=== PATIENT | male | born 1965 | race Two or more races ===

== ENCOUNTER 2016-12-11 20:43 | Emergency (ER) | payer OTHER ==
[~2016-12-11] VITALS: Ht 167.6 cm; Wt 116.0 kg
[2016-12-12] MEDS ORDERED: SODIUM CHLORIDE 0.9% 1,000 ML IV ONE (01:50)
[2016-12-12 02:20] LABS: BASOPHILS % 0.6 % (0.0-2.0); EOSINOPHILS % 2.8 % (0.0-5.0); HEMATOCRIT. 40.7 % (42.0-52.0); HEMOGLOBIN. 13.8 g/dL (14.0-18.0); LYMPHOCYTES % 38.1 % (20.0-50.0); MEAN CORPUSCULAR HEMOGLOBIN 28.7 pg (28.0-32.0); MEAN CORPUSCULAR VOLUME 84.8 fL (80.0-94.0); MEAN PLATELET VOLUME 9.2 fl (7.4-10.4); NEUTROPHILS % 46.5 % (40.0-76.0); PLATELET 208 x1000/uL (130-400); RED CELL DISTRIBUTION WIDTH 12.4 % (11.6-14.6)
[2016-12-12 02:33] LABS: CARBON DIOXIDE 25 mEq/L (21-32); CHLORIDE 109 mEq/L (98-107); TROPONIN I < 0.02 ng/mL (0.00-0.04)
[2016-12-12 05:20] VITALS: BP 145/84
== END 2016-12-12 06:15 | disposition home or self-care (01) ==
LOC: ER 20:49
DX: R53.1 Weakness (principal); R42 Dizziness and giddiness; R51 Headache; I10 Essential (primary) hypertension
CPT/HCPCS: 36415; 70450; 71010; 80053; 84484; 85025; 93005; 96360; 99285; J7030

== ENCOUNTER 2017-12-24 06:36 | Emergency (ER) | payer SELFPAY ==
[~2017-12-24] VITALS: Ht 165.1 cm; Wt 84.0 kg
[2017-12-24] MEDS ORDERED: IBUPROFEN 600MG TABLET PO ONE (07:45)
[2017-12-24 09:35] VITALS: BP 170/102
== END 2017-12-24 09:40 | disposition home or self-care (01) ==
LOC: ER 06:36
DX: S00.81XA Abrasion of other part of head, initial encounter (principal); M25.512 Pain in left shoulder; R51 Headache; I10 Essential (primary) hypertension; V43.52XA Car driver injured in collision with other type car in traffic accident, initial encounter; Y93.89 Activity, other specified; Y92.488 Other paved roadways as the place of occurrence of the external cause
CPT/HCPCS: 73030; 99284

== ENCOUNTER 2019-02-13 16:49 | Emergency (ER) | payer OTHER ==
[~2019-02-13] VITALS: Ht 167.6 cm; Wt 90.0 kg
[2019-02-13] MEDS ORDERED: LABETALOL HCL 20MG/4ML CARPUJECT IV ONE (18:15)
[2019-02-13 18:29] LABS: BASOPHILS % 0.6 % (0.0-2.0); EOSINOPHILS % 0.7 % (0.0-5.0); HEMATOCRIT. 41.7 % (42.0-52.0); HEMOGLOBIN. 14.1 g/dL (14.0-18.0); LYMPHOCYTES % 19.7 % (20.0-50.0); MEAN CORPUSCULAR HEMOGLOBIN 29.8 pg (28.0-32.0); MEAN CORPUSCULAR VOLUME 88.2 fL (80.0-94.0); MEAN PLATELET VOLUME 9.2 fl (7.4-10.4); MONOCYTES % 7.2 % (2.0-8.0); NEUTROPHILS % 71.8 % (40.0-76.0); PLATELET 215 x1000/uL (130-400); RED BLOOD CELL COUNT 4.73 mill/uL (4.7-6.1)
[2019-02-13] MEDS ORDERED: LABETALOL 5MG/ML SYR 20 MG/4 ML SYRINGE IV ONE (18:34)
[2019-02-13 18:35] LABS: CHLORIDE 114 mEq/L (98-107)
[2019-02-13] MEDS ORDERED: AMLODIPINE 10MG TABLET PO ONE (19:00)
[2019-02-13 20:21] LABS: CLARITY URINE CLEAR (CLEAR); COLOR URINE YELLOW (YELLOW); KETONES URINE TRACE (NEGATIVE); LEUKOCYTE ESTERASE URINE NEGATIVE (NEGATIVE); NITRITE URINE NEGATIVE (NEGATIVE); OCCULT BLOOD URINE 2+ (NEGATIVE); PH URINE 5.5 (4.5-8.0); PROTEIN URINE 4+ (NEGATIVE); SPECIFIC GRAVITY URINE 1.023 (1.005-1.030); UROBILINOGEN URINE 0.2 E.U./dL (0.2-1.0)
[2019-02-13] MEDS ORDERED: KETOROLAC 30MG/ML VIAL IV ONE (21:15)
[2019-02-13 21:55] VITALS: BP 152/88
== END 2019-02-13 21:57 | disposition home or self-care (01) ==
LOC: ER 16:49
DX: I10 Essential (primary) hypertension (principal); R51 Headache; Z91.14 Patient's other noncompliance with medication regimen
CPT/HCPCS: 36415; 70450; 80053; 81003; 83880; 84484; 85025; 87804; 93005; 96374; 99284; J1885; J3490

== ENCOUNTER 2019-10-12 15:36 | Inpatient (IN) | payer OTHER ==
[~2019-10-12] VITALS: Ht 162.6 cm; Wt 107.5 kg
[2019-10-12] MEDS ORDERED: SODIUM CHLORIDE 0.9% 1,000 ML IV ONE (18:18)
[2019-10-12 19:09] LABS: BASOPHILS % 0.6 % (0.0-2.0); EOSINOPHILS % 2.4 % (0.0-5.0); HEMATOCRIT. 34.3 % (42.0-52.0); HEMOGLOBIN. 11.4 g/dL (14.0-18.0); LYMPHOCYTES % 35.3 % (20.0-50.0); MEAN CORPUSCULAR HEMOGLOBIN 29.6 pg (28.0-32.0); MEAN PLATELET VOLUME 9.1 fl (7.4-10.4); NEUTROPHILS % 52.7 % (40.0-76.0); PLATELET 213 x1000/uL (130-400); RED BLOOD CELL COUNT 3.85 mill/uL (4.7-6.1); RED CELL DISTRIBUTION WIDTH 12.2 % (11.6-14.6)
[2019-10-12 19:11] LABS: CHLORIDE 116 mEq/L (98-107)
[2019-10-12] MEDS ORDERED: FUROSEMIDE 100MG/10ML VIAL IV NR (19:29)
[2019-10-12] MEDS ORDERED: INSULIN REGULAR (HUMULIN R) 300UNITS/3ML IV NR (19:30)
[2019-10-12] MEDS ORDERED: CALCIUM GLUCONATE 1,000 MG in DEXTROSE 5% WATER 50 ML IV NR (19:30)
[2019-10-12] MEDS ORDERED: DEXTROSE 50% WATER 50ML SYRINGE IV NR ×2 (19:30→23:00)
[2019-10-12] MEDS ORDERED: DEXTROSE 50% WATER 50ML SYRINGE IV ONE (22:45)
[2019-10-12 23:15] VITALS: BP 135/86
[2019-10-13] MEDS ORDERED: AMLO10TA80 PO (00:30)
[2019-10-13] MEDS ORDERED: LISI40TA4 PO (00:30)
[2019-10-13] MEDS ORDERED: ASPI-1497 PO (00:30)
[2019-10-13] MEDS ORDERED: ATOR40TA70 MT (00:30)
[2019-10-13] MEDS ORDERED: HYDR25TA MT (00:30)
[2019-10-13] MEDS ORDERED: CALC30CA PO (00:30)
[2019-10-13 00:37] LABS: CHLORIDE 119 mEq/L (98-107)
[2019-10-13] MEDS ORDERED: ONDANSETRON HCL 4MG/2ML INJ IV PRN (01:15)
[2019-10-13] MEDS ORDERED: HYDRALAZINE 20MG/ML VIAL IV PRN (01:15)
[2019-10-13] MEDS ORDERED: ACETAMINOPHEN 325MG TABLET PO PRN (01:15)
[2019-10-13] MEDS: SODIUM CHLORIDE 0.9% 1,000 ML IV SCH ×3 (03:46→22:40)
[2019-10-13 04:00] VITALS: BP 133/76
[2019-10-13 07:06] LABS: CHLORIDE 120 mEq/L (98-107)
[2019-10-13 07:07] LABS: BASOPHILS % 0.5 % (0.0-2.0); EOSINOPHILS % 2.4 % (0.0-5.0); HEMATOCRIT. 30.9 % (42.0-52.0); HEMOGLOBIN. 10.5 g/dL (14.0-18.0); LYMPHOCYTES % 28.5 % (20.0-50.0); MEAN CORPUSCULAR HEMOGLOBIN 29.9 pg (28.0-32.0); MEAN CORPUSCULAR VOLUME 87.7 fL (80.0-94.0); MEAN PLATELET VOLUME 9.5 fl (7.4-10.4); MONOCYTES % 10.3 % (2.0-8.0); NEUTROPHILS % 58.3 % (40.0-76.0); PLATELET 178 x1000/uL (130-400); RED BLOOD CELL COUNT 3.53 mill/uL (4.7-6.1); RED CELL DISTRIBUTION WIDTH 11.9 % (11.6-14.6)
[2019-10-13 07:16] LABS: CREATINE KINASE 80 IU/L (39-308)
[2019-10-13 07:18] LABS: CREATINE KINASE MB FRACTION < 1.0 ng/mL (0.5-3.6)
[2019-10-13 08:00] VITALS: BP 117/76
[2019-10-13] MEDS ORDERED: ENOXAPARIN 60MG/0.6ML SYR SUBCUT SCH (09:00)
[2019-10-13] MEDS: ENOXAPARIN 40MG/0.4ML SYR SUBCUT SCH (09:43)
[2019-10-13 12:00] VITALS: BP 131/85
[2019-10-13] MEDS ORDERED: SODIUM POLYSTYRENE SULFONATE 15 G/60 ML BOT PO NR (13:00)
[2019-10-13 13:51] LABS: CLARITY URINE CLEAR (CLEAR); COLOR URINE YELLOW (YELLOW); KETONES URINE NEGATIVE (NEGATIVE); LEUKOCYTE ESTERASE URINE NEGATIVE (NEGATIVE); NITRITE URINE NEGATIVE (NEGATIVE); OCCULT BLOOD URINE 1+ (NEGATIVE); PROTEIN URINE 3+ (NEGATIVE); SPECIFIC GRAVITY URINE 1.018 (1.005-1.030); UROBILINOGEN URINE 0.2 E.U./dL (0.2-1.0)
[2019-10-13] MEDS: METOPROLOL TARTRATE 50MG TABLET PO SCH ×2 (15:23→20:58)
[2019-10-13] MEDS: HYDROCHLOROTHIAZIDE 25MG TABLET PO SCH (15:23)
[2019-10-13] MEDS: AMLODIPINE 10MG TABLET PO SCH (15:23)
[2019-10-13] MEDS: HYDRALAZINE HCL 50MG TABLET PO SCH ×2 (15:23→22:40)
[2019-10-13 20:00] VITALS: BP 132/76
[2019-10-14] VITALS: BP 128/72
[2019-10-14 04:00] VITALS: BP 116/75
[2019-10-14] MEDS: SODIUM CHLORIDE 0.9% 1,000 ML IV SCH (05:13)
[2019-10-14] MEDS: HYDRALAZINE HCL 50MG TABLET PO SCH ×2 (05:14→14:03)
[2019-10-14 07:03] LABS: PHOSPHORUS 4.5 mg/dL (2.5-4.9)
[2019-10-14 07:04] LABS: BASOPHILS % 0.6 % (0.0-2.0); EOSINOPHILS % 2.4 % (0.0-5.0); HEMATOCRIT. 29.5 % (42.0-52.0); HEMOGLOBIN. 10.1 g/dL (14.0-18.0); LYMPHOCYTES % 29.2 % (20.0-50.0); MEAN CORPUSCULAR HEMOGLOBIN 30.2 pg (28.0-32.0); MEAN CORPUSCULAR VOLUME 87.9 fL (80.0-94.0); MEAN PLATELET VOLUME 9.6 fl (7.4-10.4); NEUTROPHILS % 57.8 % (40.0-76.0); PLATELET 164 x1000/uL (130-400); RED BLOOD CELL COUNT 3.36 mill/uL (4.7-6.1); RED CELL DISTRIBUTION WIDTH 12.1 % (11.6-14.6)
[2019-10-14 08:00] VITALS: BP 131/82
[2019-10-14] MEDS: HYDROCHLOROTHIAZIDE 25MG TABLET PO SCH (09:56)
[2019-10-14] MEDS: AMLODIPINE 10MG TABLET PO SCH (09:57)
[2019-10-14] MEDS: ENOXAPARIN 40MG/0.4ML SYR SUBCUT SCH (09:57)
[2019-10-14 12:00] VITALS: BP 119/80
[2019-10-14] MEDS ORDERED: HYDR-4135 MT (13:57)
[2019-10-14 16:00] VITALS: BP 118/73
[2019-10-14 17:44] VITALS: BP 118/73
[2019-10-18 06:06] LABS: A/G RATIO 0.9 (0.7-1.7); ALBUMIN 2.3 g/dL (2.9-4.4); ALPHA-1-GLOBULIN 0.2 g/dL (0.0-0.4); ALPHA-2-GLOBULIN 0.8 g/dL (0.4-1.0); BETA GLOBULIN 0.7 g/dL (0.7-1.3); GAMMA GLOBULINS 0.9 g/dL (0.4-1.8); GLOBULIN TOTAL 2.6 g/dL (2.2-3.9); M-SPIKE Not Observed g/dL (Not Observed); TOTAL PROTEIN SERUM 4.9 g/dL (6.0-8.5)
== END 2019-10-14 18:00 | disposition home or self-care (01) | DRG 683 ==
LOC: ER 15:36 → 8WST 20:33 → EDBEDREQ 20:35 → EDBEDREQTM 20:35 → ENRESERV 22:10
PROVIDERS: ADMIT Internal Medicine; ATTEND Internal Medicine
DX: N17.9 Acute kidney failure, unspecified (principal); E44.1 Mild protein-calorie malnutrition; Z68.41 Body mass index [BMI] 40.0-44.9, adult; E87.5 Hyperkalemia; N18.4 Chronic kidney disease, stage 4 (severe); N25.81 Secondary hyperparathyroidism of renal origin; I12.9 Hypertensive chronic kidney disease with stage 1 through stage 4 chronic kidney disease, or unspecified chronic kidney disease; E66.9 Obesity, unspecified; E78.5 Hyperlipidemia, unspecified; T46.4X5A Adverse effect of angiotensin-converting-enzyme inhibitors, initial encounter; R00.1 Bradycardia, unspecified; D63.1 Anemia in chronic kidney disease; E87.8 Other disorders of electrolyte and fluid balance, not elsewhere classified; Z86.73 Personal history of transient ischemic attack (TIA), and cerebral infarction without residual deficits; Y92.89 Other specified places as the place of occurrence of the external cause; Z71.3 Dietary counseling and surveillance
CPT/HCPCS: 36415; 76770; 80048; 80053; 81003; 82550; 82553; 82962; 83735; 83935; 83970; 84100; 84132; 84133; 84155; 84156; 84165; 84300; 84443; 84484; 85025; 93005; 93306; 96374; 99285; J0610; J1650; J1815; J7030; J7060

== ENCOUNTER 2021-08-11 15:43 | Inpatient (IN) | payer MEDICAID, OTHER ==
[~2021-08-11] VITALS: Ht 167.6 cm; Wt 81.2 kg
[~2021-08-11 15:43] MED LIST: AMLO10TA80 PO; ASPI-1497 PO; ATOR40TA70 MT; CALC30CA PO; HYDR-4135 MT; LISI40TA13 PO
[2021-08-11] MEDS ORDERED: MECLIZINE 25MG TABLET PO ONE (19:00)
[2021-08-11 20:20] LABS: BASOPHILS % 0.9 % (0.0-2.0); EOSINOPHILS % 1.1 % (0.0-5.0); HEMATOCRIT. 42.1 % (42.0-52.0); HEMOGLOBIN. 13.7 g/dL (14.0-18.0); LYMPHOCYTES % 35.4 % (20.0-50.0); MEAN CORPUSCULAR HEMOGLOBIN 29.7 pg (28.0-32.0); MEAN CORPUSCULAR VOLUME 91.5 fL (80.0-94.0); MEAN PLATELET VOLUME 10.1 fl (7.4-10.4); MONOCYTES % 7.8 % (2.0-8.0); NEUTROPHILS % 54.8 % (40.0-76.0); PLATELET 324 x1000/uL (130-400); RED CELL DISTRIBUTION WIDTH 13.2 % (11.6-14.6)
[2021-08-11 20:35] LABS: CHLORIDE 106 mEq/L (98-107)
[2021-08-11] MEDS ORDERED: SODIUM CHLORIDE 0.9% 1,000 ML IV ONE (21:15)
[2021-08-12] MEDS ORDERED: ONDANSETRON HCL 4MG/2ML INJ IV PRN (06:45)
[2021-08-12] MEDS ORDERED: SODIUM CHLORIDE 0.45% 1,000 ML IV SCH (06:45)
[2021-08-12 11:02] VITALS: BP 126/71
[2021-08-12 12:00] VITALS: BP 124/71
[2021-08-12] MEDS: SODIUM CHLORIDE 0.9% 1,000 ML IV SCH ×2 (12:53→19:38)
[2021-08-12 20:00] VITALS: BP 117/78
[2021-08-12 22:13] LABS: CHLORIDE 114 mEq/L (98-107)
[2021-08-12 22:14] LABS: BASOPHILS % 0.8 % (0.0-2.0); EOSINOPHILS % 1.4 % (0.0-5.0); HEMATOCRIT. 32.6 % (42.0-52.0); HEMOGLOBIN. 10.8 g/dL (14.0-18.0); LYMPHOCYTES % 41.6 % (20.0-50.0); MEAN CORPUSCULAR HEMOGLOBIN 29.3 pg (28.0-32.0); MEAN CORPUSCULAR VOLUME 88.3 fL (80.0-94.0); MEAN PLATELET VOLUME 9.2 fl (7.4-10.4); MONOCYTES % 11.2 % (2.0-8.0); PLATELET 186 x1000/uL (130-400); RED BLOOD CELL COUNT 3.69 mill/uL (4.7-6.1); RED CELL DISTRIBUTION WIDTH 12.9 % (11.6-14.6)
[2021-08-12] MEDS: HEPARIN 5000 UNITS/ML VIAL SUBCUT SCH (23:46)
[2021-08-12 23:49] LABS: CLARITY URINE CLEAR (CLEAR); COLOR URINE YELLOW (YELLOW); KETONES URINE NEGATIVE (NEGATIVE); LEUKOCYTE ESTERASE URINE NEGATIVE (NEGATIVE); NITRITE URINE NEGATIVE (NEGATIVE); OCCULT BLOOD URINE TRACE (NEGATIVE); PROTEIN URINE 3+ (NEGATIVE); SPECIFIC GRAVITY URINE 1.013 (1.005-1.030); UROBILINOGEN URINE 0.2 E.U./dL (0.2-1.0)
[2021-08-13] VITALS: BP 121/75
[2021-08-13] MEDS: SODIUM CHLORIDE 0.9% 1,000 ML IV SCH ×3 (03:36→22:02)
[2021-08-13 04:00] VITALS: BP 149/75
[2021-08-13 06:28] LABS: BASOPHILS % 0.8 % (0.0-2.0); EOSINOPHILS % 2.1 % (0.0-5.0); HEMATOCRIT. 32.1 % (42.0-52.0); HEMOGLOBIN. 10.7 g/dL (14.0-18.0); LYMPHOCYTES % 41.1 % (20.0-50.0); MEAN CORPUSCULAR HEMOGLOBIN 29.5 pg (28.0-32.0); MEAN CORPUSCULAR VOLUME 88.1 fL (80.0-94.0); MEAN PLATELET VOLUME 9.4 fl (7.4-10.4); MONOCYTES % 9.2 % (2.0-8.0); NEUTROPHILS % 46.8 % (40.0-76.0); PLATELET 172 x1000/uL (130-400); RED BLOOD CELL COUNT 3.64 mill/uL (4.7-6.1); RED CELL DISTRIBUTION WIDTH 12.7 % (11.6-14.6)
[2021-08-13 06:47] LABS: CHLORIDE 117 mEq/L (98-107)
[2021-08-13 06:56] LABS: HDL CHOLESTEROL 39 mg/dL (40-59); LDL CHOLESTEROL 53 mg/dL (5-100); PHOSPHORUS 4.4 mg/dL (2.5-4.9)
[2021-08-13 08:00] VITALS: BP 159/91
[2021-08-13] MEDS: HEPARIN 5000 UNITS/ML VIAL SUBCUT SCH ×2 (09:56→21:19)
[2021-08-13] MEDS: AMLODIPINE 5MG TABLET PO SCH (09:56)
[2021-08-13 12:00] VITALS: BP 148/88
[2021-08-13 16:00] VITALS: BP 161/87
[2021-08-13 20:00] VITALS: BP 138/89
[2021-08-14] VITALS: BP 150/66
[2021-08-14 04:00] VITALS: BP 128/74
[2021-08-14] MEDS: SODIUM CHLORIDE 0.9% 1,000 ML IV SCH ×3 (06:21→22:26)
[2021-08-14 07:22] LABS: CHLORIDE 114 mEq/L (98-107)
[2021-08-14 08:00] VITALS: BP 155/80
[2021-08-14] MEDS: AMLODIPINE 5MG TABLET PO SCH (09:13)
[2021-08-14] MEDS: HEPARIN 5000 UNITS/ML VIAL SUBCUT SCH ×2 (09:14→20:24)
[2021-08-14] MEDS ORDERED: MECLIZINE 25MG TABLET PO PRN (10:00)
[2021-08-14 12:00] VITALS: BP_SYST 114; BP_SYST 128; BP_SYST 82; BP_DIAS 42; BP_DIAS 68
[2021-08-14] MEDS ORDERED: ERGOCALCIFEROL 50000UNITS CAPSULE PO SCH (12:30)
[2021-08-14] MEDS: CALCIUM ACETATE 667MG CAPSULE PO SCH ×2 (12:47→18:07)
[2021-08-14 13:06] LABS: *CREATININE RANDOM URINE 62.2 mg/dL (Not Estab.); MICROALBUMIN RANDOM URINE 1754.4 ug/mL (Not Estab.)
[2021-08-14 16:00] VITALS: BP_SYST 149; BP_SYST 150; BP_SYST 84; BP_DIAS 44; BP_DIAS 78; BP_DIAS 89
[2021-08-14 20:01] VITALS: BP_SYST 101; BP_SYST 114; BP_SYST 118; BP_DIAS 66; BP_DIAS 83; BP_DIAS 88
[2021-08-15] VITALS: BP 143/90
[2021-08-15 04:00] VITALS: BP 160/90
[2021-08-15 06:42] LABS: CHLORIDE 118 mEq/L (98-107)
[2021-08-15 08:00] VITALS: BP 157/88
[2021-08-15] MEDS: CALCIUM ACETATE 667MG CAPSULE PO SCH ×2 (08:17→14:31)
[2021-08-15] MEDS: AMLODIPINE 5MG TABLET PO SCH (08:17)
[2021-08-15] MEDS: HEPARIN 5000 UNITS/ML VIAL SUBCUT SCH (08:18)
[2021-08-15] MEDS ORDERED: CALCITRIOL 0.25MCG CAPSULE PO SCH (10:30)
[2021-08-15] MEDS: SODIUM CHLORIDE 0.9% 1,000 ML IV SCH (11:33)
[2021-08-15 12:00] VITALS: BP_SYST 139; BP_SYST 141; BP_SYST 142; BP_DIAS 81; BP_DIAS 88; BP_DIAS 91
[2021-08-15] MEDS ORDERED: CALC0.253 PO (12:17)
[2021-08-15] MEDS ORDERED: CALC667C PO (12:17)
[2021-08-15] MEDS ORDERED: AMLO5TAB88 PO (12:17)
[2021-08-15 13:30] VITALS: BP 136/88
== END 2021-08-15 15:45 | disposition home or self-care (01) | DRG 469 ==
LOC: ER 15:43 → MICUSO 23:18 → 7WST 08-12 09:17
PROVIDERS: ADMIT Family Medicine; ATTEND Family Medicine
DX: N17.9 Acute kidney failure, unspecified (principal); E83.39 Other disorders of phosphorus metabolism; I12.0 Hypertensive chronic kidney disease with stage 5 chronic kidney disease or end stage renal disease; I69.359 Hemiplegia and hemiparesis following cerebral infarction affecting unspecified side; N25.81 Secondary hyperparathyroidism of renal origin; N28.1 Cyst of kidney, acquired; N40.0 Benign prostatic hyperplasia without lower urinary tract symptoms; D64.9 Anemia, unspecified; N18.5 Chronic kidney disease, stage 5; R00.1 Bradycardia, unspecified; E78.5 Hyperlipidemia, unspecified; Z85.118 Personal history of other malignant neoplasm of bronchus and lung; Z79.899 Other long term (current) drug therapy; Z79.82 Long term (current) use of aspirin
CPT/HCPCS: 36415; 70551; 76770; 80053; 80061; 81003; 82043; 82306; 82570; 82962; 83735; 83930; 83935; 83970; 84100; 84300; 85025; 99285; J1644; J7030; J8597

== ENCOUNTER 2021-08-17 15:17 | Emergency (ER) | payer MEDICAID ==
[~2021-08-17] VITALS: Ht 167.6 cm; Wt 78.0 kg
[~2021-08-17 15:17] MED LIST changes: -AMLO10TA80 PO; +AMLO5TAB88 PO; +CALC0.253 PO; -CALC30CA PO; +CALC667C PO; -LISI40TA13 PO
[2021-08-17 15:38] VITALS: BP 144/89
== END 2021-08-17 18:51 ==
LOC: ER 15:17
DX: R11.2 Nausea with vomiting, unspecified (principal); I10 Essential (primary) hypertension; Z79.899 Other long term (current) drug therapy
CPT/HCPCS: 99281

== ENCOUNTER 2022-07-01 19:41 | Emergency (ER) | payer MEDICAID, OTHER ==
[~2022-07-01] VITALS: Ht 167.6 cm; Wt 78.7 kg
[2022-07-01 19:47] VITALS: BP 136/88
[2022-07-01 21:07] LABS: CLARITY URINE CLOUDY (CLEAR); COLOR URINE YELLOW (YELLOW); KETONES URINE NEGATIVE (NEGATIVE); LEUKOCYTE ESTERASE URINE 2+ (NEGATIVE); NITRITE URINE NEGATIVE (NEGATIVE); OCCULT BLOOD URINE 2+ (NEGATIVE); PROTEIN URINE 4+ (NEGATIVE); SPECIFIC GRAVITY URINE 1.013 (1.005-1.030); UROBILINOGEN URINE 0.2 E.U./dL (0.2-1.0)
[2022-07-01] MEDS ORDERED: CEPH500C2 PO (22:14)
[2022-07-01] MEDS ORDERED: CEPHALEXIN 250MG CAPSULE PO NR (22:15)
== END 2022-07-01 22:27 | disposition home or self-care (01) ==
LOC: ER 19:41
DX: N39.0 Urinary tract infection, site not specified (principal); I10 Essential (primary) hypertension; Z79.899 Other long term (current) drug therapy
CPT/HCPCS: 81003; 87186; 99283